=== PATIENT | female | born 2000 | race Caucasian/White ===

== ENCOUNTER 2020-03-25 16:39 | Emergency (ER) | payer OTHER ==
[~2020-03-25] VITALS: Ht 154.9 cm; Wt 56.2 kg
[2020-03-25] MEDS ORDERED: PRENATABS FA T1 EACH (16:56)
== END 2020-03-25 22:44 | disposition home or self-care (01) ==
LOC: ER 16:39
DX: O21.8 Other vomiting complicating pregnancy (principal); Z3A.10 10 weeks gestation of pregnancy

== ENCOUNTER → 2020-05-29 | Outpatient (CLI) | payer OTHER ==
[~2020-05-29] MED LIST: PRENATABS FA T1 EACH
== END | disposition home or self-care (01) ==
LOC: PRENATAL 13:43
PROVIDERS: ATTEND Obstetrics & Gynecology Maternal & Fetal Medicine
DX: O35.3XX1 Maternal care for (suspected) damage to fetus from viral disease in mother, fetus 1 (principal); O35.0XX1 Maternal care for (suspected) central nervous system malformation in fetus, fetus 1; O98.512 Other viral diseases complicating pregnancy, second trimester; Z36.89 Encounter for other specified antenatal screening; Z3A.19 19 weeks gestation of pregnancy

== ENCOUNTER 2020-08-17 15:04 | Emergency (ER) | payer OTHER ==
[~2020-08-17] VITALS: Ht 152.4 cm; Wt 66.2 kg
== END 2020-08-17 18:58 | disposition home or self-care (01) ==
LOC: ER 15:04 → EMR PED 15:51
DX: S93.692A Other sprain of left foot, initial encounter (principal); X50.0XXA Overexertion from strenuous movement or load, initial encounter; Y93.89 Activity, other specified; Y92.89 Other specified places as the place of occurrence of the external cause; Y99.8 Other external cause status

== ENCOUNTER 2020-10-14 19:23 | Inpatient (IN) | payer OTHER ==
[~2020-10-14] VITALS: Ht 160 cm; Wt 76.7 kg
== END 2020-10-18 17:02 | disposition home or self-care (01) | DRG 788 ==
LOC: LDR 19:23 → O/R 10-15 19:21 → OB/GYN 10-15 20:01
PROVIDERS: ADMIT Obstetrics & Gynecology; ATTEND Obstetrics & Gynecology
PROC: 4A1HXFZ Monitoring of Products of Conception, Cardiac Rhythm, External Approach (ICD-10-PCS; 2020-10-14)
PROC: 3E0P7VZ Introduction of Hormone into Female Reproductive, Via Natural or Artificial Opening (ICD-10-PCS; 2020-10-15)
PROC: 10D00Z1 Extraction of Products of Conception, Low, Open Approach (ICD-10-PCS; principal; 2020-10-15 15:15)
DX: O61.0 Failed medical induction of labor (principal); O64.1XX0 Obstructed labor due to breech presentation, not applicable or unspecified; Z3A.39 39 weeks gestation of pregnancy; Z37.0 Single live birth; Z20.822 Contact with and (suspected) exposure to COVID-19

== ENCOUNTER 2023-08-25 13:17 | Emergency (ER) | payer OTHER ==
[~2023-08-25] VITALS: Ht 152.4 cm; Wt 78.0 kg
[2023-08-25 17:16] LABS: HEMATOCRIT 41.6 % (36.0-45.00); HEMOGLOBIN 14.1 g/dL (12.0-15.00); MEAN CELL VOLUME 88.9 fL (80.00-100.00); MEAN CORPUSCULAR HEMOGLOBIN 30.2 pg (27.00-32.0); PLATELET COUNT 225 K/uL (150-450); RED BLOOD COUNT 4.69 M/uL (4.00-6.00); RED CELL DISTRIBUTION WIDTH 13.1 % (11.5-14.5)
[2023-08-25 18:02] LABS: CALCIUM 9.1 mg/dL (8.5-10.1); CREATININE SERUM 0.58 mg/dL (0.55-1.02); POTASSIUM 3.78 mEq/L (3.5-5.1)
[2023-08-25 18:33] LABS: PH,URINE 6.5 (5.0-8.0); URINE APPEARANCE Clear; URINE BILIRRUBIN Negative (NEGATIVE); URINE BLOOD NHT; URINE COLOR Yellow; URINE GLUCOSE Negative (NEGATIVE); URINE LEUKOCYTE Negative; URINE NITRATE Negative; URINE PROTEIN Negative (NEGATIVE)
[2023-08-25 18:36] LABS: URINE BACTERIA 313.5 uL (0.0-1933); URINE EPITHELIAL CELLS 47.5 uL (0.0-38.8); URINE RBC 4.3 uL (0.0-20.8); URINE WBC 10.8 uL (0.0-23.2)
== END 2023-08-25 20:18 | disposition home or self-care (01) ==
LOC: ER 13:18
PROVIDERS: Emergency Medicine
DX: O26.891 Other specified pregnancy related conditions, first trimester (principal); R10.2 Pelvic and perineal pain; Z3A.01 Less than 8 weeks gestation of pregnancy; Z91.040 Latex allergy status; Z91.013 Allergy to seafood; Z88.8 Allergy status to other drugs, medicaments and biological substances; Z91.018 Allergy to other foods

== ENCOUNTER 2023-11-29 11:58 | Outpatient (CLI) | payer OTHER ==
[~2023-11-29 11:58] MED LIST changes: +BUTALBIT-ACETA1 EACH PO; +ONDANSETRON ODT8 MG PO; +PEPCID AC20 MG PO
== END 2023-11-29 12:00 | disposition home or self-care (01) ==
LOC: PRENATAL 11:58
PROVIDERS: ATTEND Obstetrics & Gynecology Maternal & Fetal Medicine
DX: O35.9XX0 Maternal care for (suspected) fetal abnormality and damage, unspecified, not applicable or unspecified (principal); O98.512 Other viral diseases complicating pregnancy, second trimester; O44.02 Complete placenta previa NOS or without hemorrhage, second trimester; O34.219 Maternal care for unspecified type scar from previous cesarean delivery; A92.5 Zika virus disease; Z3A.20 20 weeks gestation of pregnancy

== ENCOUNTER 2023-12-26 22:15 | Emergency (ER) | payer OTHER ==
[~2023-12-26] VITALS: Ht 147.3 cm; Wt 78.9 kg
[2023-12-27 00:38] LABS: URINE APPEARANCE Turbid; URINE BILIRRUBIN Negative (NEGATIVE); URINE BLOOD NHT; URINE COLOR Yellow; URINE GLUCOSE Negative (NEGATIVE); URINE LEUKOCYTE Large; URINE NITRATE Negative; URINE PROTEIN 30 (NEGATIVE)
[2023-12-27 00:43] LABS: URINE RBC 10.6 uL (0.0-20.8)
[2023-12-27 00:59] LABS: URINE BACTERIA > 9821.5 uL (0.0-1933); URINE WBC > 5548.3 uL (0.0-23.2)
== END 2023-12-27 01:24 | disposition home or self-care (01) ==
LOC: ER 22:16
DX: O23.42 Unspecified infection of urinary tract in pregnancy, second trimester (principal); N39.0 Urinary tract infection, site not specified; Z3A.24 24 weeks gestation of pregnancy; Z88.8 Allergy status to other drugs, medicaments and biological substances

== ENCOUNTER → 2024-02-21 11:05 | Outpatient (CLI) | payer OTHER | END | disposition home or self-care (01) | LOC: PRENATAL 11:05 | PROVIDERS: ATTEND Obstetrics & Gynecology Maternal & Fetal Medicine | DX: O26.849 Uterine size-date discrepancy, unspecified trimester (principal); O36.8199 Decreased fetal movements, unspecified trimester, other fetus; O34.219 Maternal care for unspecified type scar from previous cesarean delivery; Z3A.32 32 weeks gestation of pregnancy ==

== ENCOUNTER 2024-04-02 04:01 | Inpatient (IN) | payer OTHER ==
[~2024-04-02] VITALS: Ht 154.9 cm; Wt 87.1 kg
[2024-04-02 03:36] VITALS: BP 115/75
[2024-04-02] MEDS ORDERED: CEFAZOLIN SODIUM 1,000 MG VIAL IV SCH (04:15)
[2024-04-02] MEDS ORDERED: RINGERS SOLUTION,LACTATED 1,000 ML IV SCH ×2 (04:15→14:30)
[2024-04-02 05:37] LABS: MEAN CELL VOLUME 81.3 fL (80.00-100.00); MEAN CORPUSCULAR HEMOGLOBIN 26.3 pg (27.00-32.0); MEAN CORPUSCULAR HGB CONC 32.4 g/dl (32.0-36.0); PLATELET COUNT 183 K/uL (150-450); RED BLOOD COUNT 4.18 M/uL (4.00-6.00); RED CELL DISTRIBUTION WIDTH 15.2 % (11.5-14.5)
[2024-04-02 05:56] LABS: URINE APPEARANCE Clear; URINE BILIRRUBIN Negative (NEGATIVE); URINE BLOOD Negative; URINE COLOR Yellow; URINE GLUCOSE Negative (NEGATIVE); URINE KETONE Negative (NEGATIVE); URINE LEUKOCYTE Negative; URINE NITRATE Negative; URINE PROTEIN Negative (NEGATIVE); URINE UROBILINOGEN 0.2 E.U./dl
[2024-04-02 06:00] LABS: URINE BACTERIA 91.9 uL (0.0-1933)
[2024-04-02 06:01] LABS: INR 0.96; PARTIAL THROMBOPLASTIN TIME 26.3 SECONDS (22.0-34.0); PROTHROMBIN TIME 10.5 SECONDS (9.0-11.5)
[2024-04-02 06:02] LABS: URINE RBC 0.3 uL (0.0-20.8)
[2024-04-02 07:25] VITALS: BP 100/64; O2SAT 98
[2024-04-02 11:02] VITALS: BP 115/73; O2SAT 98
[2024-04-02] MEDS ORDERED: KETOROLAC TROMETHAMINE 60 MG VIAL IM STA (14:26)
[2024-04-02] MEDS ORDERED: MEPERIDINE HCL/PF 50 MG/ML VIAL IM PRN (14:30)
[2024-04-02] MEDS ORDERED: PROMETHAZINE HCL 25 MG/ML AMPUL IM PRN (14:30)
[2024-04-02] MEDS ORDERED: OXYTOCIN 10 UNITS/ML VIAL IV ONE (14:30)
[2024-04-02] MEDS ORDERED: ERYTHROMYCIN BASE OPHT 1GM EACH TUBE OP ONE (14:30)
[2024-04-02] MEDS ORDERED: MORPHINE SULFATE 4 MG/ML VIAL IV ONE (14:50)
[2024-04-02 19:29] VITALS: BP 117/75
[2024-04-02 23:14] LABS: HEMATOCRIT 31.6 % (36.0-45.00); HEMOGLOBIN 10.2 g/dL (12.0-15.00); MEAN CELL VOLUME 81.2 fL (80.00-100.00); MEAN CORPUSCULAR HEMOGLOBIN 26.2 pg (27.00-32.0); MEAN CORPUSCULAR HGB CONC 32.2 g/dl (32.0-36.0); PLATELET COUNT 159 K/uL (150-450); RED BLOOD COUNT 3.89 M/uL (4.00-6.00); RED CELL DISTRIBUTION WIDTH 14.9 % (11.5-14.5)
[2024-04-03] VITALS: BP 101/65
[2024-04-03 08:28] VITALS: BP 119/64
[2024-04-03] MEDS ORDERED: IBUprofen 400 MG TABLET PO STA (10:48)
[2024-04-03] MEDS ORDERED: IBUprofen 600 MG TABLET PO PRN (11:00)
[2024-04-03 13:13] VITALS: BP 129/60
[2024-04-03 17:07] VITALS: BP 109/68
[2024-04-03 21:51] VITALS: BP 124/82
[2024-04-03] MEDS ORDERED: FF) RHO(D) IMMUNE GLOBULIN (POM) IM STA (23:03)
[2024-04-04 02:08] VITALS: BP 120/79
[2024-04-04 08:10] VITALS: BP 104/65
[2024-04-04 16:00] VITALS: BP 108/72
[2024-04-05] VITALS: BP 107/70
[2024-04-05 09:22] VITALS: BP 114/76
== END 2024-04-05 15:38 | disposition home or self-care (01) | DRG 788 ==
LOC: OB/GYN 04:01 → LDR 04:01 → O/R 14:45 → OB/GYN 14:56
PROVIDERS: ADMIT Obstetrics & Gynecology; ATTEND Obstetrics & Gynecology
PROC: 4A1HXCZ Monitoring of Products of Conception, Cardiac Rate, External Approach (ICD-10-PCS; 2024-04-02)
PROC: 10D00Z1 Extraction of Products of Conception, Low, Open Approach (ICD-10-PCS; principal; 2024-04-02 13:15)
DX: O34.211 Maternal care for low transverse scar from previous cesarean delivery (principal); Z3A.38 38 weeks gestation of pregnancy; Z37.0 Single live birth; Z20.822 Contact with and (suspected) exposure to COVID-19